=== PATIENT | female | born 1965 | race African-American/Black ===

== ENCOUNTER 2018-06-20 07:32 | Emergency (ER) | payer MEDICAID ==
[~2018-06-20] VITALS: Ht 170.2 cm; Wt 102.0 kg
[2018-06-20] MEDS ORDERED: LIDOCAINE HCL 1% 20ML VIAL (Pyxis) INJ INFIL ONE (10:30)
[2018-06-20] MEDS ORDERED: BACITRACIN ZINC OINT UDPKT TOP ONE (10:30)
[2018-06-20] MEDS ORDERED: KETOROLAC 60MG/2ML VIAL IM ONE (10:30)
[2018-06-20 11:35] VITALS: BP 110/62
== END 2018-06-20 11:39 | disposition home or self-care (01) ==
LOC: ER 07:32
DX: L02.31 Cutaneous abscess of buttock (principal); G89.29 Other chronic pain; M54.5 Low back pain; I69.354 Hemiplegia and hemiparesis following cerebral infarction affecting left non-dominant side; Z98.1 Arthrodesis status
CPT/HCPCS: 10060; 96372; 99283; J1885; J3490